=== PATIENT | male | born 1960 | race Caucasian/White ===

== ENCOUNTER 2018-08-23 17:24 | Emergency (ER) | payer MEDICARE ==
[~2018-08-23] VITALS: Ht 177.8 cm; Wt 104.5 kg
[2018-08-23 18:03] LABS: BASOPHILS # (AUTO) 0.1 X10'3 (0-0.2); BASOPHILS % (AUTO) 0.5 % (0-1); EOSINOPHILS # (AUTO) 0.2 X10'3 (0-0.9); EOSINOPHILS % (AUTO) 2.5 % (0-6); HEMATOCRIT 38.3 % (42.0-52.0); HEMOGLOBIN 12.9 g/dl (14.0-17.9); LYMPHOCYTES # (AUTO) 1.6 X10'3 (1.1-4.8); LYMPHOCYTES % (AUTO) 15.5 % (21-51); MEAN CORPUSCULAR HEMOGLOBIN 29.1 PG (27.0-31.0); MEAN CORPUSCULAR HGB CONC 33.7 g/dL (33.0-36.5); MEAN CORPUSCULAR VOLUME 86.1 FL (78-98); MEAN PLATELET VOLUME 9.2 FL (7.4-10.4); MONOCYTES % (AUTO) 9.5 % (2-12); NEUTROPHILS # (AUTO) 7.2 X10'3 (1.8-7.7); PLATELET COUNT 224 X10'3 (140-440); RED BLOOD COUNT 4.45 X10'6 (4.70-6.10); RED CELL DISTRIBUTION WIDTH 13.8 % (11.5-14.5); WHITE BLOOD COUNT 10.1 X10'3 (4.5-11.0)
[2018-08-23 18:16] LABS: ALANINE AMINOTRANSFERASE 51 U/L (12-78); ALBUMIN 3.7 G/DL (3.4-5.0); ALBUMIN/GLOBULIN RATIO 1.1 (1.1-1.5); ALKALINE PHOSPHATASE 96 IU/L (46-116); ANION GAP 9 (8-16); ASPARTATE AMINO TRANSFERASE 19 U/L (10-37); BILIRUBIN,TOTAL 0.3 MG/DL (0.1-1.0); BLOOD UREA NITROGEN 13 MG/DL (7-18); BUN/CREATININE RATIO 11.4 (5.4-32.0); CALCIUM 9.5 MG/DL (8.5-10.1); CHLORIDE 107 MMOL/L (99-107); CREATININE 1.14 MG/DL (0.60-1.10); GLUCOSE 130 MG/DL (70-104); SODIUM 141 MMOL/L (135-145); TOTAL CARBON DIOXIDE 25.1 MMOL/L (24-32); eGFR 66 ML/MIN
[2018-08-23 18:26] LABS: ETHANOL < 0.010 GM/DL (0.0-0.010)
[2018-08-23 18:38] LABS: COLOR,URINE YELLOW (Yellow); GLUCOSE, URINE NEGATIVE (Neg); KETONES,URINE NEGATIVE (Neg); LEUKOCYTE ESTERASE ,URINE NEGATIVE (Neg); NITRITES, URINE NEGATIVE (Neg); OCCULT BLOOD,URINE TRACE-INTACT (Neg); PH,URINE 5.5 (4.8-8.0); PROTEIN,URINE 30 mg/dl (Neg); UROBILINOGEN,URINE 0.2 E.U/dL (0.2-1.0)
[2018-08-23 18:47] LABS: CLARITY,URINE SLIGHTLY CLOUDY (Clear); UA COLLECTION TYPE CLN CATCH MIDSTREAM; URINE AMPHETAMINE SCREEN NEGATIVE (Neg); URINE BARBITUATE SCREEN NEGATIVE (Neg); URINE BENZODIAZEPINES SCREEN NEGATIVE (Neg); URINE CANNABINOID SCREEN POSITIVE (Neg); URINE COCAINE SCREEN NEGATIVE (Neg); URINE METHADONE SCREEN NEGATIVE (Neg); URINE OPIATE SCREEN NEGATIVE (Neg); URINE PHENCYCLIDINE SCREEN NEGATIVE (Neg)
[2018-08-23 18:48] LABS: WBC,URINE 0-4 /HPF (0-4)
[2018-08-23 18:49] LABS: BACTERIA,URINE NONE SEEN /HPF (Neg); HYALINE CASTS 0-3 /LPF (NEGATIVE); MUCUS STRANDS MANY /LPF (Neg); SQUAMOUS EPITHELIAL CELL,UR FEW /LPF (FEW)
--- NOTE | 2018-08-23 19:00 | NUR ---
PATIENT LYING ON RIGHT SIDE EYES CLOSED .
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
--- NOTE | 2018-08-23 22:00 | NUR ---
PATIENT UP TO RESTROOM AGAIN, AMBULATED INDEPENDENT.
--- NOTE | 2018-08-23 23:50 | NUR ---
TRACIE TALKING WITH PATIENT, PATIENT NOTED TO HAVE A COUGH THAT THE PATIENT STATES HE HAS ALWAYS HAD.
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
[2018-08-24] MEDS ORDERED: OLANZapine 5mg rapidly disint. tablet PO PRN (01:50)
[2018-08-24] MEDS ORDERED: traZODone 50mg tablet PO ONE (02:00)
--- NOTE | 2018-08-24 03:00 | NUR ---
PATIENT UP APPEARS TO BE SLEEP WALKING BUT THEN STATES THAT HE NEEDS HIS MEDICATION TO HELP HIM STAY ASLEEP. I CALLED MD AND ORDERS PLACED.
[2018-08-24 03:07] LABS: VALPROATE < 3.0 UG/ML (50-100)
--- NOTE | 2018-08-24 05:13 | NUR ---
PATIENT LYING ON LEFT SIDE , EQUAL RISE AND FALL OF CHEST.
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
[2018-08-24] MEDS ORDERED: haloperidol lactate 5mg/ml inj IM ONE (06:35)
[2018-08-24] MEDS ORDERED: diphenhydrAMINE 50 mg/ml inj IM ONE (06:35)
[2018-08-24] MEDS ORDERED: LORazepam 2 mg/ml vial IM ONE (06:35)
--- NOTE | 2018-08-24 07:11 | NUR ---
Pt lying in bed talking to himself.
--- NOTE | 2018-08-24 09:54 | NUR ---
Up ambulating to bathroom. Steady gait noted.
--- NOTE | 2018-08-24 11:27 | NUR ---
relieving RN for lunch, pt is resting quietly, amb with steady gait to restroom
--- NOTE | 2018-08-24 11:45 | NUR ---
pt has been [facility] by JOSE MANUEL Lee [facility] regional flatbed truck driver will be here approx 1400 to [phone]
--- NOTE | 2018-08-24 12:57 | NUR ---
Pt pacing around unit talking to himself. He is calm and cooperative and responds well to reorientation.
[2018-08-24] MEDS ORDERED: quetiapine 100mg tablet PO STA (13:28)
[2018-08-24 14:12] VITALS: BP 156/89
[2018-08-24] MEDS ORDERED: traZODone 50mg tablet PO SCH (20:00)
[2018-08-24] MEDS ORDERED: quetiapine 100mg tablet PO SCH (21:00)
== END 2018-08-24 14:14 ==
LOC: ER 17:25
DX: T14.91XA Suicide attempt, initial encounter (principal); R44.2 Other hallucinations; F31.9 Bipolar disorder, unspecified; M54.5 Low back pain; F17.200 Nicotine dependence, unspecified, uncomplicated; X83.8XXA Intentional self-harm by other specified means, initial encounter; Y93.89 Activity, other specified; Y92.89 Other specified places as the place of occurrence of the external cause; Y99.8 Other external cause status
CPT/HCPCS: 36415; 80053; 80164; 80178; 80305; 80320; 81001; 84443; 85025; 99285